=== PATIENT | male | born 1960 | race Caucasian/White ===

== ENCOUNTER → 2017-04-30 | Outpatient (CLI) | payer SELFPAY ==
[2016-04-05 18:41] VITALS: BP 157/86
[~2017-04-30] MED LIST: ASPIR LOW81 MG PO; FUROSEMIDE PO; LIP PO; LOPRESSOR 225 MG/TAB PO; PLAVIX 75MG TAB75 MG PO; POTASSIUM CL 220 MEQ PO; PRINIVIL20 M1 PO; TOPROL XL 50MG50 MG PO
== END ==
LOC: LAB 12:01
DX: R07.9 Chest pain, unspecified (principal)

== ENCOUNTER → 2017-05-07 | Outpatient (CLI) | payer SELFPAY ==
[2016-04-05 18:41] VITALS: BP 157/86
== END ==
LOC: RAD 14:30
DX: R31.9 Hematuria, unspecified (principal); R10.32 Left lower quadrant pain; R10.12 Left upper quadrant pain; Z87.442 Personal history of urinary calculi; N13.2 Hydronephrosis with renal and ureteral calculous obstruction

== ENCOUNTER 2017-09-04 05:42 | Emergency (ER) | payer SELFPAY ==
[2017-09-04 06:23] LABS: HEMATOCRIT 39.3 % (42.0-52.0); HEMOGLOBIN 13.3 g/dL (13.5-18.0); MEAN CELL VOLUME 93 fl (78-100); MEAN CORPUSCULAR HEMOGLOBIN 31 pg (27-31); MEAN CORPUSCULAR HGB CONC 34 g/dL (33-37); MEAN PLATELET VOLUME 9.8 fl (7.4-10.4); PLATELET COUNT 300 K/mm3 (130-400); RED BLOOD COUNT 4.23 M/mm3 (4.20-5.60); RED CELL DISTRIBUTION WIDTH 13.6 % (11.5-14.5); WHITE BLOOD COUNT 11.5 K/mm3 (4.8-10.8)
[2017-09-04 06:29] LABS: ALBUMIN 3.4 g/dL (3.5-5.0); BUN/CREATININE RATIO 16.7 (6.0-26.0); POTASSIUM 3.6 mmol/L (3.6-5.0); TOTAL BILIRUBIN 0.5 mg/dL (0.2-1.3); TOTAL PROTEIN 7.1 g/dL (6.3-8.2)
[2017-09-04 06:34] LABS: CKMB ISOENZYME 0.6 ng/mL (0.6-3.5)
[2017-09-04 06:35] LABS: TROPONIN-I < 0.03 ng/mL (0.00-0.06)
[2017-09-04 06:39] LABS: LYMPHOCYTE 10 % (20-51); MONOCYTE 16 % (3-10); NEUTROPHILS 74 % (42-75)
[2017-09-04 07:07] LABS: D-DIMER 1.05 mg/L FEU (0.15-0.50)
[2017-09-04 07:19] LABS: URINE APPEARANCE CLOUDY; URINE BILIRUBIN NEGATIVE (NEGATIVE); URINE BLOOD 250 ery/uL (NEGATIVE); URINE COLOR DARK YELLOW; URINE GLUCOSE NEGATIVE (NEGATIVE); URINE KETONE NEGATIVE (NEGATIVE); URINE NITRATE POSITIVE (NEGATIVE); URINE PROTEIN(semi-quant) 1+ mg/dL (NEGATIVE); URINE UROBILINOGEN NORMAL (NORMAL)
[2017-09-04 07:20] LABS: URINE LEUKOCYTE ESTERASE 2+ (NEGATIVE); URINE MUCUS PRESENT (NOT PRESENT); URINE WBC 31-50 /hpf (0-3)
[2017-09-04] MEDS ORDERED: ZOFRAN ODT8 M1 PO (10:17)
[2017-09-04] MEDS ORDERED: CIPRO500 M1 PO (10:17)
[2017-09-04] MEDS ORDERED: FLAGYL500 M1 PO (10:17)
[2017-09-04 10:44] VITALS: BP 149/68
== END 2017-09-04 10:45 | disposition home or self-care (01) ==
LOC: ED 05:42
PROVIDERS: Nurse Practitioner Family
DX: K81.0 Acute cholecystitis (principal); N30.90 Cystitis, unspecified without hematuria; I70.1 Atherosclerosis of renal artery; F15.90 Other stimulant use, unspecified, uncomplicated; I11.0 Hypertensive heart disease with heart failure; I50.9 Heart failure, unspecified; I25.10 Atherosclerotic heart disease of native coronary artery without angina pectoris; B19.20 Unspecified viral hepatitis C without hepatic coma; J43.9 Emphysema, unspecified; F17.210 Nicotine dependence, cigarettes, uncomplicated; K08.9 Disorder of teeth and supporting structures, unspecified
CPT/HCPCS: J2405; J3010; J7030; Q9967